=== PATIENT | male | born 1985 | race Caucasian/White ===

== ENCOUNTER 2020-06-09 11:21 | Emergency (ER) | payer SELFPAY ==
--- NOTE | 2020-06-09 11:30 | ED.SEIZURE ---
HPI - Seizure General Chief Complaint: Seizure Stated Complaint: seizure Time Seen by Provider: 06/09/20 11:29 Source: patient, EMS and other (significant other) Mode of arrival: EMS Limitations: no limitations History of Present Illness complaint: seizure Onset (ago): minute(s) Description of Episode: loss of consciousness, post-event confusion and other (repeated episodes of staring off and drooling) -: minutes(s) Witnessed: Yes - by Bystander Trauma: No Seizure History: Yes Place: Outdoors (in car at gas station) Possible Precipitating Event: other (has hx of brain surgery in past was told he would have seizures for his lifetime - states that he hasn't been on medications in a long time used to take trileptal) Associated symptoms: denies other symptoms Treatments prior to arrival: none Related Data Previous Rx's Medication Instructions Recorded oxcarbazepine [Trileptal] 150 mg PO BID #60 tab 06/09/20 Allergies Allergy/AdvReac Type Severity Reaction Status Date / Time No Known Allergies Allergy Verified 06/09/20 11:37 Review of Systems Review of Systems: Constitutional : No Fever, No Chills ENT/Mouth : No Ear Pain, No Hoarseness, No sore throat Eyes: No Eye Pain, No Swelling, No Redness, No Foreign Body Cardiovascular : No Chest Pain, No SOB Respiratory : No Cough, No Dyspnea Gastrointestinal : No Nausea, No Vomiting, No Diarrhea, No abdominal Pain Genitourinary : No Dysuria, No Hematuria Musculoskeletal : no joint pain, No Myalgias, No Joint Swelling Skin : No Skin lacerations, No rash Neuro : No Weakness, No Numbness, pos Loss of Consciousness, No Dizziness, No Headache, pos seizure Psych : No Anxiety/Panic, No Depression Heme/Lymph: no easy bruising, no Lymphadenopathy Endocrine : No Polyuria, No Polydipsia All other systems reviewed and are negative PMFSH Past Medical History Attestation statement: The following information was validated with the patient. Medical History (Updated 06/09/20 @ 12:30 by Freida Rose DO) Seizures Surgical History H/O brain surgery Social History Social History (Updated 06/09/20 @ 11:31 by Freida Milton, DO) Alcohol intake: never Smoking Status: Current every day smoker Use of substances other than those prescribed or required for medical reasons: No Advance Directives: No Advance Directives Information Provided: No Physical Exam Vital Signs: Vital Signs: Last Vital Signs Temp 98.5 F 06/09/20 11:33 Pulse 73 06/09/20 11:33 Resp 18 06/09/20 11:33 BP 125/80 06/09/20 11:33 Pulse Ox 97 06/09/20 11:33 Body Mass Index 22.1 Appearance: Alert. Oriented X3. No acute distress. Eyes: Pupils equal, round and reactive to light. ENT: Pharynx normal. Neck: Normal inspection. Neck supple. CVS: Normal heart rate and rhythm. Pulses normal. Respiratory: No respiratory distress. Breath sounds normal. Abdomen: Soft and nontender. Skin: Skin warm and dry. Normal skin color. Normal skin turgor. Extremities: No lower extremity edema. No calf ttp Neuro: Oriented X 3. No motor deficit. No sensory deficit. Course Course Course Narrative: GCS 15 at baseline, wants to go home, [facility], tolerated trileptal well for years was told he would never come off of it but took him off at this time, will start back on 300mg / day, refer as outpatient MDM - Seizure MDM Narrative Medical decision making narrative: 35 yo male with hx of brain surgery at 16 seizures post this but has not taken any in many years - has had them on and off since then, notes today in a car his GF saw him with staring off, drooling, not responding, no tonic clonic movements ?absence seizures at this time will need basic labs, EKG, he is neuro intact and GCS 15 - will offer [facility] follow up with Neurology Lab Data Result diagrams: 06/09/20 11:44 06/09/20 11:44 Labs: Lab Results 06/09/20 06/09/20 06/09/20 Range/Units 11:44 11:44 11:44 WBC 8.8 (4.8-10.8) X10*3/uL RBC 5.03 (4.60-5.80) X10*6/uL Hgb 14.9 (14.0-18.0) g/dl Hct 44.3 (42-52) % MCV 88.1 (80-98) fL MCH 29.6 (27.0-33.0) pg MCHC 33.6 (31.0-36.0) g/dl RDW 12.9 (11.0-16.0) % Plt Count 236 (160-400) X10*3/uL MPV 9.9 (9.4-12.4) fL Immature Gran % (Auto) 0.3 (0.0-0.4) % Neut % (Auto) 83.5 H (45-73) % Lymph % (Auto) 11.3 L (20-40) % [place] % (Auto) 3.3 (2-11) % Eos % (Auto) 1.3 (0-4) % Baso % (Auto) 0.3 (0-2) % Lymph # (Auto) 1.0 L (1.2-4.9) X10*3/uL [place] # (Auto) 0.3 (0.1-1.2) X10*3/uL Eos # (Auto) 0.1 (0.0-0.4) X10*3/uL Baso # (Auto) 0.0 (0.0-0.2) X10*3/uL Abs Immat Gran (auto) 0.03 (0.00-0.03) X10*3/uL Absolute Neuts (auto) 7.4 (2.0-8.3) X10*3/uL Absolute Nucleated RBC 0.000 (0.0-0.012) X10*3/uL Nucleated RBC % (auto) 0.0 (0.0-0.2) /100WBC Hold Blue Top SEE NOTE Sodium 139 (135-145) mmol/L Potassium 4.8 (3.3-5.1) mmol/L Chloride 105 (96-108) mmol/L Carbon Dioxide 19 L (22-29) mmol/L Anion Gap 20 (12-20) BUN 15 (9-16) mg/dL Creatinine 1.22 (0.5-1.4) mg/dL Estim Creat Clear Calc 80.5 Estimated GFR > 60 Random Glucose 139 H (60-115) mg/dL Calcium 9.5 (8.4-10.2) mg/dL Magnesium (1.6-2.6) mg/dL Total Bilirubin (0.0-1.0) mg/dL Direct Bilirubin (0.0-0.5) mg/dL AST (5-37) U/L ALT (0-40) U/L Alkaline Phosphatase (39-117) U/L Total Protein (6.5-8.0) g/dL Albumin (3.5-5.0) g/dL 06/09/20 Range/Units 11:44 WBC (4.8-10.8) X10*3/uL RBC (4.60-5.80) X10*6/uL Hgb (14.0-18.0) g/dl Hct (42-52) % MCV (80-98) fL MCH (27.0-33.0) pg MCHC (31.0-36.0) g/dl RDW (11.0-16.0) % Plt Count (160-400) X10*3/uL MPV (9.4-12.4) fL Immature Gran % (Auto) (0.0-0.4) % Neut % (Auto) (45-73) % Lymph % (Auto) (20-40) % [place] % (Auto) (2-11) % Eos % (Auto) (0-4) % Baso % (Auto) (0-2) % Lymph # (Auto) (1.2-4.9) X10*3/uL [place] # (Auto) (0.1-1.2) X10*3/uL Eos # (Auto) (0.0-0.4) X10*3/uL Baso # (Auto) (0.0-0.2) X10*3/uL Abs Immat Gran (auto) (0.00-0.03) X10*3/uL Absolute Neuts (auto) (2.0-8.3) X10*3/uL Absolute Nucleated RBC (0.0-0.012) X10*3/uL Nucleated RBC % (auto) (0.0-0.2) /100WBC Hold Blue Top Sodium (135-145) mmol/L Potassium (3.3-5.1) mmol/L Chloride (96-108) mmol/L Carbon Dioxide (22-29) mmol/L Anion Gap (12-20) BUN (9-16) mg/dL Creatinine (0.5-1.4) mg/dL Estim Creat Clear Calc Estimated GFR Random Glucose (60-115) mg/dL Calcium (8.4-10.2) mg/dL Magnesium 2.5 (1.6-2.6) mg/dL Total Bilirubin 0.4 (0.0-1.0) mg/dL Direct Bilirubin 0.2 (0.0-0.5) mg/dL AST 16 (5-37) U/L ALT 20 (0-40) U/L Alkaline Phosphatase 73 (39-117) U/L Total Protein 7.0 (6.5-8.0) g/dL Albumin 4.6 (3.5-5.0) g/dL ECG Data Attestation: I personally reviewed and interpreted this ECG as follows: ECG interpretation date: 06/09/20 ECG interpretation time: 11:44 Interpretation: Rate: 70 Rhythm: NSR [place]: normal Normal P waves. Normal DOUG. Normal QRS complex. ST T wave : normal, no ROMEO qTC: normal prior studies: no acute ischemia The study has been interpreted contemporaneously by me. . Discharge Plan Discharge Clinical Impression: Focal seizure Patient Disposition: Home, Self-Care Instructions: Epilepsy (ED) Additional Instructions: return to ED for any worsening symptoms or concerns do not operate cars or heavy machinery until cleared by your doctor Prescriptions: New oxcarbazepine [Trileptal] 150 mg tablet 150 mg PO BID Qty: 60 RF: 1 Stand Alone Forms: Work/School Release
[2020-06-09 11:33] VITALS: BP 125/80; BP 138/90; PULSE 73; PULSE 96; RESP 18; TEMP 36.9; O2SAT 97; BMI 22.1
--- NOTE | 2020-06-09 11:33 | ECG_ITS ---
Test Reason : SEIZURE Blood Pressure : / mmHG Vent. Rate : 070 BPM Atrial Rate : 070 BPM P-R Int : 120 ms QRS Dur : 092 ms QT Int : 380 ms P-R-T Axes : 020 022 023 degrees QTc Int : 410 ms Normal sinus rhythm Normal ECG No previous ECGs available Referred By: Freida Rose Electronically Signed By:MELANIE TINEO MD
[2020-06-09 11:50] LABS: MANUAL DIFF FLAG NO
[2020-06-09 11:53] LABS: Basophils Percent Auto 0.3 % (0-2); Eosinophils Absolute Auto 0.1 X10*3/uL (0.0-0.4); Eosinophils Percent Auto 1.3 % (0-4); Hematocrit 44.3 % (42-52); Hemoglobin 14.9 g/dl (14.0-18.0); Imm Gran Abs Auto 0.03 X10*3/uL (0.00-0.03); Imm Gran Pct Auto 0.3 % (0.0-0.4); Lymphocytes Percent Auto 11.3 % (20-40); Mean Corpuscular HGB Conc 33.6 g/dl (31.0-36.0); Mean Corpuscular Hemoglobin 29.6 pg (27.0-33.0); Mean Corpuscular Volume 88.1 fL (80-98); Mean Platelet Volume 9.9 fL (9.4-12.4); Monocytes Absolute Auto 0.3 X10*3/uL (0.1-1.2); Monocytes Percent Auto 3.3 % (2-11); Neutrophils Absolute Auto 7.4 X10*3/uL (2.0-8.3); Neutrophils Percent Auto 83.5 % (45-73); Platelet Count 236 X10*3/uL (160-400); Red Blood Count 5.03 X10*6/uL (4.60-5.80); Red Cell Distribution Width 12.9 % (11.0-16.0); White Blood Count 8.8 X10*3/uL (4.8-10.8)
[2020-06-09 12:17] LABS: Anion Gap 20 (12-20); Blood Urea Nitrogen 15 mg/dL (9-16); Calcium 9.5 mg/dL (8.4-10.2); Carbon Dioxide 19 mmol/L (22-29); Chloride 105 mmol/L (96-108); Creatinine Clr Calc Pharmacy 80.5; Estimated Glomerular Filt Rate > 60; Glucose Random 139 mg/dL (60-115); Potassium 4.8 mmol/L (3.3-5.1); Sodium 139 mmol/L (135-145)
[2020-06-09 12:21] LABS: Alanine Aminotransferase 20 U/L (0-40); Albumin Level 4.6 g/dL (3.5-5.0); Alkaline Phosphatase 73 U/L (39-117); Aspartate Amino Transferase 16 U/L (5-37); Bilirubin Direct 0.2 mg/dL (0.0-0.5); Bilirubin Total 0.4 mg/dL (0.0-1.0); Magnesium 2.5 mg/dL (1.6-2.6)
--- NOTE | 2020-06-09 12:28 | PC.NURSE ---
NO SEIZURES SINCE ARRRIVAL TO ED, SEIZURE PRECAUTIONS IN PLACE, NSR ON MONITOR. AMBULATED INDEPENDENTLY TO BATHROOM WITH NO ISSUE. GIVEN PAMPHLET FOR FINANCIAL ASSISTANCE.
== END 2020-06-09 12:33 | disposition home or self-care (01) ==
PROVIDERS: Emergency Provider Emergency Medicine
DX: G40.109 Localization-related (focal) (partial) symptomatic epilepsy and epileptic syndromes with simple partial seizures, not intractable, without status epilepticus (principal); F17.200 Nicotine dependence, unspecified, uncomplicated
CPT/HCPCS: 36415; 80048; 80076; 83735; 85025; 93005; 99283

== ENCOUNTER 2020-08-29 10:49 | Emergency (ER) | payer SELFPAY ==
[2020-08-29 10:56] VITALS: BP 120/71; PULSE 88; RESP 16; TEMP 36.9; O2SAT 94; BMI 21.5
--- NOTE | 2020-08-29 11:02 | ED_ITS ---
HPI - Seizure General Chief Complaint: Seizure Stated Complaint: seizure Time Seen by Provider: 08/29/20 10:54 Source: patient and EMS Mode of arrival: EMS Limitations: no limitations History of Present Illness HPI Narrative: Patient comes emergency room after having a seizure. Patient had a witnessed seizure according to EMS, patient's girlfriend fall down. Seizure lasted approximately 1 minute. 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 Patient states that he had a seizure a few months ago, he was started on Trileptal 150 mg b.i.d., he was doing well but recently he ran out of his medications. It has been over 2 weeks that he has not had any medication for seizures. Patient states that he does not have insurance and is not able to get a primary care physician or go see a neurologist. Patient states that he does not remember wha t happened. However, patient states that he needs to be at work by 15:00, and if necessary he will sign out against medical advice that he can make it on time to work MD complaint: seizure Seizure History: Yes Related Data Previous Rx's Medication Instructions Recorded oxcarbazepine [Trileptal] 150 mg PO BID #60 tab 06/09/20 oxcarbazepine [Trileptal] 150 mg PO BID #90 tab 08/29/20 Allergies Allergy/AdvReac Type Severity Reaction Status Date / Time No Known Allergies Allergy Verified 06/09/20 11:37 Review of Systems Review of Systems: Constitutional : No Weight loss, No Fever, No Chills, No Night Sweats, No Fatigue, No Malaise ENT/Mouth : No Hearing loss, No Ear Pain, No Nasal Congestion, No Sinus Pain, No Hoarseness, No sore throat, No Rhinorrhea, No Swallowing Difficulty Eyes: No Eye Pain, No Swelling, No Redness, No Foreign Body, No Discharge, No Vision Changes Cardiovascular : No Chest Pain, No SOB, No Dyspnea on Exertion, No Orthopnea, No Edema, No Palpitations Respiratory : No Cough, No Sputum, No Wheezing, No Smoke Exposure, No Dyspnea Gastrointestinal : No Nausea, No Vomiting, No Diarrhea, No Constipation, No abdominal Pain, No Hematochezia, No Melena Genitourinary : no irregular bleeding, No Dysuria, No Urinary Frequency, No Hematuria, No Urinary Incontinence, No Urgency, No Flank Pain, No Urinary Flow Changes, No Hesitancy Musculoskeletal : No joint pain, No Myalgias, No Joint Swelling Skin : No Skin Lesions, No rash Neuro : No Weakness, No Numbness, No Paresthesias, No Loss of Consciousness, No Dizziness, of frontal headache, complaining of a seizure earlier today through Psych : No Anxiety/Panic, No Depression, No SI/HI/AH/VH, No Social Issues, Heme/Lymph: No Bruising, No Bleeding,No Lymphadenopathy Endocrine : No Polyuria, No Polydipsia, No Temperature Intolerance [facility] Past Medical History Medical History Seizures Surgical History H/O brain surgery Social History Social History (Updated 06/09/20 @ 11:31 by Freida Rose DO) Alcohol intake: never Advance Directives: Yes Advance Directives Information Provided: No Advance Directives on File: No Physical Exam Vital Signs: Vital Signs: Last Vital Signs Temp 98.5 F 08/29/20 10:56 Pulse 88 08/29/20 10:56 Resp 16 08/29/20 10:56 BP 120/71 08/29/20 10:56 Pulse Ox 94 08/29/20 10:56 Body Mass Index 21.5 Appearance: Alert. Oriented X3. No acute distress. Eyes: Pupils equal, round and reactive to light. ENT: Pharynx normal. Neck: Normal inspection. Neck supple. No lymph nodes noted. No crepitus CVS: Normal heart rate and rhythm. Pulses normal. Normal S1 and S2 Respiratory: No respiratory distress. Breath sounds normal. No Wheezing. No rales Abdomen: Soft and nontender. No rigidity. No distention. good BS x4 Skin: Skin warm and dry. Normal skin color. Normal skin turgor. Extremities: No lower extremity edema. No Lacerations. No Rash Neuro: Oriented X 3. No motor deficit. No sensory deficit. Moving all extermities. No slurred speech. Course Course Course Narrative: I discussed the labs with the patient, states that he would like to be discharged, he needs to get going to work. Patient's seizure was likely due to medication noncompliance. Patient instructed to follow-up with the primary care physician, information for PCP given. Patient still needs to arrange his health insurance, instructions given to the patient. MDM - Seizure Lab Data Result diagrams: 08/29/20 11:15 08/29/20 11:15 Labs: Lab Results 08/29/20 08/29/20 08/29/20 Range/Units 11:15 11:15 11:15 WBC 6.2 (4.8-10.8) X10*3/uL RBC 4.95 (4.60-5.80) X10*6/uL Hgb 14.8 (14.0-18.0) g/dl Hct 43.6 (42-52) % MCV 88.1 (80-98) fL MCH 29.9 (27.0-33.0) pg MCHC 33.9 (31.0-36.0) g/dl RDW 13.1 (11.0-16.0) % Plt Count 219 (160-400) X10*3/uL MPV 10.1 (9.4-12.4) fL Immature Gran % (Auto) 0.5 H (0.0-0.4) % Neut % (Auto) 71.9 (45-73) % Lymph % (Auto) 17.4 L (20-40) % [place] % (Auto) 5.3 (2-11) % Eos % (Auto) 4.4 H (0-4) % Baso % (Auto) 0.5 (0-2) % Lymph # (Auto) 1.1 L (1.2-4.9) X10*3/uL [place] # (Auto) 0.3 (0.1-1.2) X10*3/uL Eos # (Auto) 0.3 (0.0-0.4) X10*3/uL Baso # (Auto) 0.0 (0.0-0.2) X10*3/uL Abs Immat Gran (auto) 0.03 (0.00-0.03) X10*3/uL Absolute Neuts (auto) 4.5 (2.0-8.3) X10*3/uL Absolute Nucleated RBC 0.000 (0.0-0.012) X10*3/uL Nucleated RBC % (auto) 0.0 (0.0-0.2) /100WBC Sodium 139 (135-145) mmol/L Potassium 4.8 (3.3-5.1) mmol/L Chloride 107 (96-108) mmol/L Carbon Dioxide 20 L (22-29) mmol/L Anion Gap 17 (12-20) BUN 12 (9-16) mg/dL Creatinine 1.14 (0.5-1.4) mg/dL Estim Creat Clear Calc 86.2 Estimated GFR > 60 Random Glucose 139 H (60-115) mg/dL Calcium 9.3 (8.4-10.2) mg/dL Total Bilirubin 0.4 (0.0-1.0) mg/dL Direct Bilirubin < 0.2 (0.0-0.5) mg/dL AST 13 (5-37) U/L ALT 11 (0-40) U/L Alkaline Phosphatase 56 D (39-117) U/L Total Protein 6.7 (6.5-8.0) g/dL Albumin 4.3 (3.5-5.0) g/dL Urine Color STRAW Urine Appearance CLEAR Urine pH 6.0 (5.0-8.0) Ur Specific [place] 1.020 (1.005-1.025) Urine Protein NEG (NEG-TRACE) MG/DL Urine Glucose (UA) NEG (NEG) MG/DL Urine Ketones NEG (NEG) MG/DL Urine Blood TRACE (NEG) Urine Nitrite NEG (NEG) Ur Leukocyte Esterase NEG (NEG) Urine RBC 0-2 (0) /HPF Urine WBC 0 (0-4) /HPF Ur Squamous Epith Cells NONE /LPF Urine Bacteria NONE /LPF Urine Opiates Screen (Not Detect) Ur Barbiturates Screen (Not Detect) Ur Phencyclidine Scrn (Not Detect) Ur Amphetamines Screen (Not Detect) U Benzodiazepines Scrn (Not Detect) Urine Cocaine Screen (Not Detect) U Marijuana (THC) Screen (Not Detect) 08/29/20 Range/Units 11:15 WBC (4.8-10.8) X10*3/uL RBC (4.60-5.80) X10*6/uL Hgb (14.0-18.0) g/dl Hct (42-52) % MCV (80-98) fL MCH (27.0-33.0) pg MCHC (31.0-36.0) g/dl RDW (11.0-16.0) % Plt Count (160-400) X10*3/uL MPV (9.4-12.4) fL Immature Gran % (Auto) (0.0-0.4) % Neut % (Auto) (45-73) % Lymph % (Auto) (20-40) % [place] % (Auto) (2-11) % Eos % (Auto) (0-4) % Baso % (Auto) (0-2) % Lymph # (Auto) (1.2-4.9) X10*3/uL [place] # (Auto) (0.1-1.2) X10*3/uL Eos # (Auto) (0.0-0.4) X10*3/uL Baso # (Auto) (0.0-0.2) X10*3/uL Abs Immat Gran (auto) (0.00-0.03) X10*3/uL Absolute Neuts (auto) (2.0-8.3) X10*3/uL Absolute Nucleated RBC (0.0-0.012) X10*3/uL Nucleated RBC % (auto) (0.0-0.2) /100WBC Sodium (135-145) mmol/L Potassium (3.3-5.1) mmol/L Chloride (96-108) mmol/L Carbon Dioxide (22-29) mmol/L Anion Gap (12-20) BUN (9-16) mg/dL Creatinine (0.5-1.4) mg/dL Estim Creat Clear Calc Estimated GFR Random Glucose (60-115) mg/dL Calcium (8.4-10.2) mg/dL Total Bilirubin (0.0-1.0) mg/dL Direct Bilirubin (0.0-0.5) mg/dL AST (5-37) U/L ALT (0-40) U/L Alkaline Phosphatase (39-117) U/L Total Protein (6.5-8.0) g/dL Albumin (3.5-5.0) g/dL Urine Color Urine Appearance Urine pH (5.0-8.0) Ur Specific [place] (1.005-1.025) Urine Protein (NEG-TRACE) MG/DL Urine Glucose (UA) (NEG) MG/DL Urine Ketones (NEG) MG/DL Urine Blood (NEG) Urine Nitrite (NEG) Ur Leukocyte Esterase (NEG) Urine RBC (0) /HPF Urine WBC (0-4) /HPF Ur Squamous Epith Cells /LPF Urine Bacteria /LPF Urine Opiates Screen Not Detected (Not Detect) Ur Barbiturates Screen Not Detected (Not Detect) Ur Phencyclidine Scrn Not Detected (Not Detect) Ur Amphetamines Screen Not Detected (Not Detect) U Benzodiazepines Scrn Not Detected (Not Detect) Urine Cocaine Screen Not Detected (Not Detect) U Marijuana (THC) Screen POSITIVE H (Not Detect) Discharge Plan Discharge Clinical Impression: Generalized seizure Patient Disposition: Home, Self-Care Instructions: Generalized Tonic Clonic Seizures (ED) Additional Instructions: Please go to the [facility] financial office on the 1st floor. There, you can get help to apply for [employer]. Please follow-up with your primary care physician tomorrow. If you have any worsening or new symptoms, please return to the emergency room or call 911 Prescriptions: New oxcarbazepine [Trileptal] 150 mg tablet 150 mg PO BID Qty: 90 RF: 1 No Action oxcarbazepine [Trileptal] 150 mg tablet 150 mg PO BID Qty: 60 RF: 1
[2020-08-29] MEDS: Acetaminophen 325 MG TABLET 650 MG PO (11:16)
[2020-08-29] MEDS: OXcarbazepine 150 MG TABLET PO (11:16)
[2020-08-29 11:23] LABS: MANUAL DIFF FLAG NO
[2020-08-29 11:24] LABS: Basophils Percent Auto 0.5 % (0-2); Eosinophils Absolute Auto 0.3 X10*3/uL (0.0-0.4); Eosinophils Percent Auto 4.4 % (0-4); Hematocrit 43.6 % (42-52); Hemoglobin 14.8 g/dl (14.0-18.0); Imm Gran Abs Auto 0.03 X10*3/uL (0.00-0.03); Imm Gran Pct Auto 0.5 % (0.0-0.4); Lymphocytes Absolute Auto 1.1 X10*3/uL (1.2-4.9); Lymphocytes Percent Auto 17.4 % (20-40); Mean Corpuscular HGB Conc 33.9 g/dl (31.0-36.0); Mean Corpuscular Hemoglobin 29.9 pg (27.0-33.0); Mean Corpuscular Volume 88.1 fL (80-98); Mean Platelet Volume 10.1 fL (9.4-12.4); Monocytes Absolute Auto 0.3 X10*3/uL (0.1-1.2); Monocytes Percent Auto 5.3 % (2-11); Neutrophils Absolute Auto 4.5 X10*3/uL (2.0-8.3); Neutrophils Percent Auto 71.9 % (45-73); Platelet Count 219 X10*3/uL (160-400); Red Blood Count 4.95 X10*6/uL (4.60-5.80); Red Cell Distribution Width 13.1 % (11.0-16.0); White Blood Count 6.2 X10*3/uL (4.8-10.8)
[2020-08-29 11:26] LABS: Glucose Urine UA NEG (NEG); Leukocyte Esterase Urine NEG (NEG); Nitrite Urine NEG (NEG); Urine Blood TRACE (NEG); Urine Ketones NEG (NEG); Urine Protein NEG (NEG-TRACE)
[2020-08-29 11:27] LABS: Appearance Urine CLEAR; Color Urine STRAW
[2020-08-29 11:41] LABS: RBC Urine 0-2 /HPF (0); WBC Urine 0 /HPF (0-4)
[2020-08-29 11:52] LABS: Alanine Aminotransferase 11 U/L (0-40); Albumin Level 4.3 g/dL (3.5-5.0); Alkaline Phosphatase 56 U/L (39-117); Amphetamine Screen Urine Not Detected (Not Detect); Anion Gap 17 (12-20); Aspartate Amino Transferase 13 U/L (5-37); Barbiturates, Urine Not Detected (Not Detect); Benzodiazepines Screen Urine Not Detected (Not Detect); Bilirubin Direct < 0.2 mg/dL (0.0-0.5); Bilirubin Total 0.4 mg/dL (0.0-1.0); Blood Urea Nitrogen 12 mg/dL (9-16); Calcium 9.3 mg/dL (8.4-10.2); Cannabinoid Screen Urine POSITIVE (Not Detect); Carbon Dioxide 20 mmol/L (22-29); Chloride 107 mmol/L (96-108); Cocaine Screen Urine Not Detected (Not Detect); Creatinine Clr Calc Pharmacy 86.2; Estimated Glomerular Filt Rate > 60; Glucose Random 139 mg/dL (60-115); Opiate Screen Urine Not Detected (Not Detect); Phencyclidine Screen Urine Not Detected (Not Detect); Potassium 4.8 mmol/L (3.3-5.1); Sodium 139 mmol/L (135-145); Total Protein 6.7 g/dL (6.5-8.0)
== END 2020-08-29 12:20 | disposition home or self-care (01) ==
PROVIDERS: Emergency Provider Emergency Medicine
DX: G40.89 Other seizures (principal); Z91.14 Patient's other noncompliance with medication regimen
CPT/HCPCS: 36415; 80048; 80076; 80307; 81001; 85025; 99283; 99284

== ENCOUNTER 2020-12-04 20:50 | Emergency (ER) | payer OTHER, SELFPAY ==
[2020-12-04 20:55] VITALS: BP 138/70; PULSE 90; O2SAT 100
[2020-12-04 21:02] VITALS: BMI 22.8
--- NOTE | 2020-12-04 21:10 | ECG_ITS ---
Test Reason : SEIZURE Blood Pressure : / mmHG Vent. Rate : 078 BPM Atrial Rate : 078 BPM P-R Int : 144 ms QRS Dur : 092 ms QT Int : 390 ms P-R-T Axes : 047 -01 010 degrees QTc Int : 444 ms Normal sinus rhythm with sinus arrhythmia Normal ECG No significant changes seen Referred By: Ernestina Boateng Electronically Signed By:LUDY GOMEZ MD
--- NOTE | 2020-12-04 21:13 | ED.SEIZURE ---
HPI - Seizure General Chief Complaint: Seizure Stated Complaint: seizure Time Seen by Provider: 12/04/20 21:05 Source: patient and EMS Mode of arrival: EMS Limitations: no limitations History of Present Illness HPI Narrative: Patient comes emergency room complaining of a seizure which was witnessed by his girlfriend. According to EMS, the patient's girlfriend reported that the seizure lasted for 5 minutes. Patient arrived to the emergency room alert and oriented x3, not postictal. 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 Patient was seen here in August 2020. Patient is supposed to be taking Trileptal, he was given information to follow up with a new primary care physician and was given the phone number for Neurology. Patient did not call Neurology or scheduled an appointment with a new PCP. Patient states that he is upset because he was given a prescription for Trileptal, and when he ran out of medications he called the emergency room for a refill and was declined. It was explained to the patient that primary care physician or a neurologist needs to take care of his refills, and also needs a neurologist to manage his condition. Patient denies any symptoms at this time, did not bite his tongue, no incontinence Seizure History: Yes Related Data Previous Rx's Medication Instructions Recorded oxcarbazepine 150 mg tablet 150 mg PO BID #60 tab 06/09/20 (Trileptal) oxcarbazepine 150 mg tablet 150 mg PO BID #90 tab 08/29/20 (Trileptal) oxcarbazepine 150 mg tablet 150 mg PO BID #120 tab 12/04/20 (Trileptal) Allergies Allergy/AdvReac Type Severity Reaction Status Date / Time No Known Allergies Allergy Verified 06/09/20 11:37 Review of Systems Review of Systems: Constitutional : No Weight loss, No Fever, No Chills, No Night Sweats, No Fatigue, No Malaise ENT/Mouth : No Hearing loss, No Ear Pain, No Nasal Congestion, No Sinus Pain, No Hoarseness, No sore throat, No Rhinorrhea, No Swallowing Difficulty Eyes: No Eye Pain, No Swelling, No Redness, No Foreign Body, No Discharge, No Vision Changes Cardiovascular : No Chest Pain, No SOB, No Dyspnea on Exertion, No Orthopnea, No Edema, No Palpitations Respiratory : No Cough, No Sputum, No Wheezing, No Smoke Exposure, No Dyspnea Gastrointestinal : No Nausea, No Vomiting, No Diarrhea, No Constipation, No abdominal Pain, No Hematochezia, No Melena Genitourinary : no irregular bleeding, No Dysuria, No Urinary Frequency, No Hematuria, No Urinary Incontinence, No Urgency, No Flank Pain, No Urinary Flow Changes, No Hesitancy Musculoskeletal : No joint pain, No Myalgias, No Joint Swelling Skin : No Skin Lesions, No rash Neuro : No Weakness, No Numbness, No Paresthesias, patient had 1 seizure Psych : No Anxiety/Panic, No Depression, No SI/HI/AH/VH, No Social Issues, Heme/Lymph: No Bruising, No Bleeding,No Lymphadenopathy Endocrine : No Polyuria, No Polydipsia, No Temperature Intolerance PMFSH Past Medical History Medical History Seizures Surgical History H/O brain surgery Social History Social History (Updated 06/09/20 @ 11:31 by Freida Rose DO) Alcohol intake: never Advance Directives: No Advance Directives Information Provided: Yes Physical Exam Vital Signs: Vital Signs: Last Vital Signs Temp 96 F L 12/04/20 22:05 Pulse 79 12/04/20 22:05 Resp 18 12/04/20 22:05 BP 120/83 12/04/20 22:05 Pulse Ox 98 12/04/20 22:05 Body Mass Index 22.8 Const: Other: Appearance: Alert. Oriented X3, not postictal. No acute distress. Eyes: Pupils equal, round and reactive to light. ENT: Pharynx normal. Neck: Normal inspection. Neck supple. No lymph nodes noted. No crepitus CVS: Normal heart rate and rhythm. Pulses normal. Normal S1 and S2 Respiratory: No respiratory distress. Breath sounds normal. No Wheezing. No rales Abdomen: Soft and nontender. No rigidity. No distention. good BS x4 Skin: Skin warm and dry. Normal skin color. Normal skin turgor. Extremities: No lower extremity edema. No Lacerations. No Rash Neuro: Oriented X 3. No motor deficit. No sensory deficit. Moving all extermities. No slurred speech. Course Course Course Narrative: Patient is today upset today because does not have good signal on his cellphone, wants to leave AMA. A hospital phone was provided. I discussed the labs and imaging with the patient, patient states that he recently took Adderall to get him motivated to work. Patient denies using drugs or marijuana. Patient instructed to follow-up with his new primary care physician. On discharge, patient is awake, alert and oriented x3, no acute distress, neurologically intact, steady gait, patient apologized for his behavior earlier today. MDM - Seizure Lab Data Result diagrams: 12/04/20 21:36 12/04/20 21:36 Labs: Lab Results 12/04/20 12/04/20 12/04/20 Range/Units 21:36 21:36 21:36 WBC 7.6 (4.8-10.8) X10*3/uL RBC 4.60 (4.60-5.80) X10*6/uL Hgb 13.8 L (14.0-18.0) g/dl Hct 39.8 L (42-52) % MCV 86.5 (80-98) fL MCH 30.0 (27.0-33.0) pg MCHC 34.7 (31.0-36.0) g/dl RDW 12.8 (11.0-16.0) % Plt Count 218 (160-400) X10*3/uL MPV 10.1 (9.4-12.4) fL Immature Gran % (Auto) 0.4 (0.0-0.4) % Neut % (Auto) 73.3 H (45-73) % Lymph % (Auto) 16.4 L (20-40) % [place] % (Auto) 5.9 (2-11) % Eos % (Auto) 3.7 (0-4) % Baso % (Auto) 0.3 (0-2) % Lymph # (Auto) 1.3 (1.2-4.9) X10*3/uL [place] # (Auto) 0.5 (0.1-1.2) X10*3/uL Eos # (Auto) 0.3 (0.0-0.4) X10*3/uL Baso # (Auto) 0.0 (0.0-0.2) X10*3/uL Abs Immat Gran (auto) 0.03 (0.00-0.03) X10*3/uL Absolute Neuts (auto) 5.6 (2.0-8.3) X10*3/uL Absolute Nucleated RBC 0.000 (0.0-0.012) X10*3/uL Nucleated RBC % (auto) 0.0 (0.0-0.2) /100WBC Sodium 140 (135-145) mmol/L Potassium 4.0 (3.3-5.1) mmol/L Chloride 106 (96-108) mmol/L Carbon Dioxide 22 (22-29) mmol/L Anion Gap 16 (12-20) BUN 15 (9-16) mg/dL Creatinine 1.11 (0.5-1.4) mg/dL Estim Creat Clear Calc 91.4 Estimated GFR > 60 Random Glucose 114 (60-115) mg/dL Calcium 9.3 (8.4-10.2) mg/dL Total Bilirubin 0.5 (0.0-1.0) mg/dL Direct Bilirubin 0.2 (0.0-0.5) mg/dL AST 18 (5-37) U/L ALT 15 (0-40) U/L Alkaline Phosphatase 53 (39-117) U/L Total Protein 6.7 (6.5-8.0) g/dL Albumin 4.5 (3.5-5.0) g/dL Urine Color Urine Appearance Urine pH (5.0-8.0) Ur Specific [place] (1.005-1.025) Urine Protein (NEG-TRACE) MG/DL Urine Glucose (UA) (NEG) MG/DL Urine Ketones (NEG) MG/DL Urine Blood (NEG) Urine Nitrite (NEG) Ur Leukocyte Esterase (NEG) Urine RBC (0) /HPF Urine WBC (0-4) /HPF Ur Squamous Epith Cells /LPF Urine Bacteria /LPF Urine Opiates Screen (Not Detect) Urine Fentanyl Screen (Not Detect) Ur Barbiturates Screen (Not Detect) Ur Phencyclidine Scrn (Not Detect) Ur Amphetamines Screen (Not Detect) U Benzodiazepines Scrn (Not Detect) Urine Cocaine Screen (Not Detect) U Marijuana (THC) Screen (Not Detect) Ethyl Alcohol < 10 mg/dL 12/04/20 12/04/20 Range/Units 21:36 21:36 WBC (4.8-10.8) X10*3/uL RBC (4.60-5.80) X10*6/uL Hgb (14.0-18.0) g/dl Hct (42-52) % MCV (80-98) fL MCH (27.0-33.0) pg MCHC (31.0-36.0) g/dl RDW (11.0-16.0) % Plt Count (160-400) X10*3/uL MPV (9.4-12.4) fL Immature Gran % (Auto) (0.0-0.4) % Neut % (Auto) (45-73) % Lymph % (Auto) (20-40) % [place] % (Auto) (2-11) % Eos % (Auto) (0-4) % Baso % (Auto) (0-2) % Lymph # (Auto) (1.2-4.9) X10*3/uL [place] # (Auto) (0.1-1.2) X10*3/uL Eos # (Auto) (0.0-0.4) X10*3/uL Baso # (Auto) (0.0-0.2) X10*3/uL Abs Immat Gran (auto) (0.00-0.03) X10*3/uL Absolute Neuts (auto) (2.0-8.3) X10*3/uL Absolute Nucleated RBC (0.0-0.012) X10*3/uL Nucleated RBC % (auto) (0.0-0.2) /100WBC Sodium (135-145) mmol/L Potassium (3.3-5.1) mmol/L Chloride (96-108) mmol/L Carbon Dioxide (22-29) mmol/L Anion Gap (12-20) BUN (9-16) mg/dL Creatinine (0.5-1.4) mg/dL Estim Creat Clear Calc Estimated GFR Random Glucose (60-115) mg/dL Calcium (8.4-10.2) mg/dL Total Bilirubin (0.0-1.0) mg/dL Direct Bilirubin (0.0-0.5) mg/dL AST (5-37) U/L ALT (0-40) U/L Alkaline Phosphatase (39-117) U/L Total Protein (6.5-8.0) g/dL Albumin (3.5-5.0) g/dL Urine Color YELLOW Urine Appearance CLEAR Urine pH 5.5 (5.0-8.0) Ur Specific [place] >= 1.030 H (1.005-1.025) Urine Protein 1+ H (NEG-TRACE) MG/DL Urine Glucose (UA) NEG (NEG) MG/DL Urine Ketones NEG (NEG) MG/DL Urine Blood TRACE (NEG) Urine Nitrite NEG (NEG) Ur Leukocyte Esterase NEG (NEG) Urine RBC 0 (0) /HPF Urine WBC 0 (0-4) /HPF Ur Squamous Epith Cells NONE /LPF Urine Bacteria TRACE /LPF Urine Opiates Screen Not Detected (Not Detect) Urine Fentanyl Screen Not Detected (Not Detect) Ur Barbiturates Screen Not Detected (Not Detect) Ur Phencyclidine Scrn Not Detected (Not Detect) Ur Amphetamines Screen POSITIVE H (Not Detect) U Benzodiazepines Scrn Not Detected (Not Detect) Urine Cocaine Screen Not Detected (Not Detect) U Marijuana (THC) Screen POSITIVE H (Not Detect) Ethyl Alcohol mg/dL Discharge Plan Discharge Clinical Impression: Generalized seizure Patient Disposition: Home, Self-Care Instructions: Generalized Tonic Clonic Seizures (ED) Additional Instructions: Please follow-up with your primary care physician tomorrow. If you have any worsening or new symptoms, please return to the emergency room or call 911 Prescriptions: New oxcarbazepine [Trileptal] 150 mg tablet 150 mg PO BID Qty: 120 RF: 0 No Action oxcarbazepine [Trileptal] 150 mg tablet 150 mg PO BID Qty: 60 RF: 1 oxcarbazepine [Trileptal] 150 mg tablet 150 mg PO BID Qty: 90 RF: 1
[2020-12-04] MEDS: OXcarbazepine 300 MG TABLET PO (21:39)
[2020-12-04 21:41] LABS: MANUAL DIFF FLAG NO
[2020-12-04 21:42] LABS: Basophils Percent Auto 0.3 % (0-2); Eosinophils Absolute Auto 0.3 X10*3/uL (0.0-0.4); Eosinophils Percent Auto 3.7 % (0-4); Hematocrit 39.8 % (42-52); Hemoglobin 13.8 g/dl (14.0-18.0); Imm Gran Abs Auto 0.03 X10*3/uL (0.00-0.03); Imm Gran Pct Auto 0.4 % (0.0-0.4); Lymphocytes Absolute Auto 1.3 X10*3/uL (1.2-4.9); Lymphocytes Percent Auto 16.4 % (20-40); Mean Corpuscular HGB Conc 34.7 g/dl (31.0-36.0); Mean Corpuscular Volume 86.5 fL (80-98); Mean Platelet Volume 10.1 fL (9.4-12.4); Monocytes Absolute Auto 0.5 X10*3/uL (0.1-1.2); Monocytes Percent Auto 5.9 % (2-11); Neutrophils Absolute Auto 5.6 X10*3/uL (2.0-8.3); Neutrophils Percent Auto 73.3 % (45-73); Platelet Count 218 X10*3/uL (160-400); Red Cell Distribution Width 12.8 % (11.0-16.0); White Blood Count 7.6 X10*3/uL (4.8-10.8)
[2020-12-04 21:43] LABS: Appearance Urine CLEAR; Color Urine YELLOW; Glucose Urine UA NEG (NEG); Leukocyte Esterase Urine NEG (NEG); Nitrite Urine NEG (NEG); PH 5.5 (5.0-8.0); Specific Gravity - Urine >= 1.030 (1.005-1.025); UACC Culture Trigger NO; Urine Blood TRACE (NEG); Urine Ketones NEG (NEG); Urine Protein 1+ MG/DL (NEG-TRACE)
[2020-12-04 21:50] LABS: Bacteria Urine TRACE /LPF; RBC Urine 0 /HPF (0); WBC Urine 0 /HPF (0-4)
[2020-12-04 21:56] LABS: Ethanol < 10 mg/dL
[2020-12-04 21:58] LABS: Amphetamine Screen Urine POSITIVE (Not Detect); Barbiturates, Urine Not Detected (Not Detect); Benzodiazepines Screen Urine Not Detected (Not Detect); Cannabinoid Screen Urine POSITIVE (Not Detect); Cocaine Screen Urine Not Detected (Not Detect); Fentanyl, urine Not Detected (Not Detect); Opiate Screen Urine Not Detected (Not Detect); Phencyclidine Screen Urine Not Detected (Not Detect)
[2020-12-04 21:59] LABS: Alanine Aminotransferase 15 U/L (0-40); Albumin Level 4.5 g/dL (3.5-5.0); Alkaline Phosphatase 53 U/L (39-117); Anion Gap 16 (12-20); Aspartate Amino Transferase 18 U/L (5-37); Bilirubin Direct 0.2 mg/dL (0.0-0.5); Bilirubin Total 0.5 mg/dL (0.0-1.0); Blood Urea Nitrogen 15 mg/dL (9-16); Calcium 9.3 mg/dL (8.4-10.2); Carbon Dioxide 22 mmol/L (22-29); Chloride 106 mmol/L (96-108); Creatinine Clr Calc Pharmacy 91.4; Estimated Glomerular Filt Rate > 60; Glucose Random 114 mg/dL (60-115); Sodium 140 mmol/L (135-145); Total Protein 6.7 g/dL (6.5-8.0)
[2020-12-04 22:05] VITALS: BP 120/83; PULSE 79; RESP 18; TEMP 35.5; O2SAT 98
== END 2020-12-04 22:35 | disposition home or self-care (01) ==
PROVIDERS: Emergency Provider Emergency Medicine; PCP Internal Medicine Medical Oncology
DX: G40.89 Other seizures (principal); Z91.14 Patient's other noncompliance with medication regimen
CPT/HCPCS: 36415; 80048; 80076; 80307; 81001; 82077; 85025; 93005; 99283

== ENCOUNTER 2020-12-04 23:22 | Emergency (ER) | payer OTHER, SELFPAY ==
--- NOTE | 2020-12-04 23:29 | ED.SEIZURE ---
HPI - Seizure General Chief Complaint: Seizure Stated Complaint: seizure Time Seen by Provider: 12/04/20 23:28 Source: patient and EMS Mode of arrival: EMS Limitations: no limitations History of Present Illness HPI Narrative: Patient was discharged less than an hour ago. When he arrived home, patient had another seizure. Patient careful and call 911. Patient did not want to come to the hospital but eventually he was convinced. At this time, patient states that he wants to leave against medical advice, he does not want any treatment. Patient is alert and oriented, not postictal. After talking to the patient, he agrees to stay for IV treatment, but states that he will not accept to be admitted. Patient denies any injuries. Seizure History: Yes Related Data Home Medications Medication Instructions Recorded Confirmed No Known Home Meds 12/05/20 12/05/20 Allergies Allergy/AdvReac Type Severity Reaction Status Date / Time No Known Allergies Allergy Verified 06/09/20 11:37 Review of Systems Review of Systems: Constitutional : No Weight loss, No Fever, No Chills, No Night Sweats, No Fatigue, No Malaise ENT/Mouth : No Hearing loss, No Ear Pain, No Nasal Congestion, No Sinus Pain, No Hoarseness, No sore throat, No Rhinorrhea, No Swallowing Difficulty Eyes: No Eye Pain, No Swelling, No Redness, No Foreign Body, No Discharge, No Vision Changes Cardiovascular : No Chest Pain, No SOB, No Dyspnea on Exertion, No Orthopnea, No Edema, No Palpitations Respiratory : No Cough, No Sputum, No Wheezing, No Smoke Exposure, No Dyspnea Gastrointestinal : No Nausea, No Vomiting, No Diarrhea, No Constipation, No abdominal Pain, No Hematochezia, No Melena Genitourinary : no irregular bleeding, No Dysuria, No Urinary Frequency, No Hematuria, No Urinary Incontinence, No Urgency, No Flank Pain, No Urinary Flow Changes, No Hesitancy Musculoskeletal : No joint pain, No Myalgias, No Joint Swelling Skin : No Skin Lesions, No rash Neuro : No Weakness, No Numbness, No Paresthesias, 2nd seizure today, no headache Psych : No Anxiety/Panic, No Depression, No SI/HI/AH/VH, No Social Issues, Heme/Lymph: No Bruising, No Bleeding,No Lymphadenopathy Endocrine : No Polyuria, No Polydipsia, No Temperature Intolerance PMF Past Medical History Medical History Seizures Surgical History H/O brain surgery Social History Social History (Updated 06/09/20 @ 11:31 by Freida Rose DO) Alcohol intake: never Advance Directives: No Advance Directives Information Provided: No Physical Exam Vital Signs: Vital Signs: Last Vital Signs Temp 98.9 F 12/05/20 03:29 Pulse 72 12/05/20 03:29 Resp 18 12/05/20 03:29 BP 122/78 12/05/20 03:29 Pulse Ox 96 12/05/20 03:29 Body Mass Index 22.1 Const: Other: Appearance: Alert. Oriented X3. No acute distress. Eyes: Pupils equal, round and reactive to light. ENT: Pharynx normal. Neck: Normal inspection. Neck supple. No lymph nodes noted. No crepitus CVS: Normal heart rate and rhythm. Pulses normal. Normal S1 and S2 Respiratory: No respiratory distress. Breath sounds normal. No Wheezing. No rales Abdomen: Soft and nontender. No rigidity. No distention. good BS x4 Skin: Skin warm and dry. Normal skin color. Normal skin turgor. Extremities: No lower extremity edema.. No Lacerations. No Rash Neuro: Oriented X 3. No motor deficit. No sensory deficit. Moving all extermities. No slurred speech cranial nerves 2-12 grossly intact Course Course Course Narrative: Patient accepts to get 1 dose of IV Keppra. I discussed with the patient that given that he has had multiple seizures today, he should be staying in the hospital, tomorrow he would get Neurology consult in he can establish care as well. Patient declined, states he wants to leave. Patient will be leaving against medical advise Patient received IV Keppra 1500 mg. Patient declined admission. Prescription has been already sent to his pharmacy lasting for 2 months while he finds a new primary care physician and Neurology After patient was being discharged, he said he was sleepy and wanted to stay here sleeping until the morning. It was discussed with the patient that he can not sleep at home. Will be safer there. Patient states that now he wants to be admitted. Discussed the patient with Dr. Adan, patient will be admitted. Reevaluation(s) Reevaluation #1: Patient has been admitted by the hospitalist. I was informed by Dr. Adan that the patient declined to be admission alert he is awake. Patient leaving AMA Time: 05:12 Discharge Plan Discharge Clinical Impression: Generalized seizure Patient Disposition: Left Against Medical Advice
[2020-12-04 23:30] VITALS: BP 136/84; BP 142/65; PULSE 87; PULSE 89; RESP 18; TEMP 36.9; O2SAT 97; BMI 22.1
[2020-12-04] MEDS: levETIRAcetam in NaCl (iso-os) 1,500 MG/100 ML PIGGYBACK 400 MG IV (23:43)
--- NOTE | 2020-12-05 01:59 | PC.NURSE ---
In accordance w/ pt wishes to leave AMA s/p keppra infusion, attempted to bring pt dc papers. Pt also noted to have self-discontinued PIV. Pt states I'm exhausted and I need to stay the night. Educated pt that we are not able to allow discharged pts to sleep w/o medical indication, pt stated is it too late to change my mind? and is now requesting further treatment and inpt admission. MD Boateng made aware
[2020-12-05 03:29] VITALS: BP 122/78; PULSE 72; RESP 18; TEMP 37.2; O2SAT 96
--- NOTE | 2020-12-05 04:46 | P.HPHOSP_ITS ---
History of Present Illness Date of Service: 12/05/20 Chief Complaint: Seizure 35-year-old male with a past medical history of seizure, history of brain surgery; noncompliant with home medications; presented to the hospital with a chief complaint of seizure episode. Patient initially presented earlier in the night with a chief complaint of seizure and was noted to be noncompliant with the Trileptal and subsequently patient was discharged home recommending continuing his home medications. Patient mentioned that have treatment home he had another episode of seizure; similar to the prior episodes tonic-clonic in nature. Denies any loss of consciousness, tongue biting or urinary accident. Was briefly postictal. Subsequently came back to the hospital for further evaluation. Patient denies any headaches blurry visions numbness tingling or focal weakness. Denies any fever chills cough. Denies any GI or symptoms. Denies any chest pain palpitations lightheadedness or dizziness. Review of all other systems is negative except mentioned above ER course: Per ER team patient on presentation noted to have grossly nonfocal examination; labs were essentially benign; patient was given 1 dose of Keppra IV; admitted to the hospital for further management. REPLACED BY [facility] Medical History Seizures Pertinent family history: Reviewed Surgical History H/O brain surgery Social History (Updated 06/09/20 @ 11:31 by Freida Rose DO) Alcohol intake: never Advance Directives: No Advance Directives Information Provided: No Meds Allergies Allergy/AdvReac Type Severity Reaction Status Date / Time No Known Allergies Allergy Verified 06/09/20 11:37 Active Medications: Current Medications Acetaminophen (Acetaminophen 325 Mg Tablet) 650 mg PO Q6H PRN PRN Reason: Pain, Mild (Pain Scale 1-3) Dextrose/Sodium Chloride (D51/2ns) 1,000 mls @ 100 mls/hr IVCONT .Q10H LACI Lorazepam (Lorazepam 2 Mg/Ml Vial) 1 mg IVPUSH Q2H PRN PRN Reason: Seizures Melatonin (Melatonin 3 Mg Tablet) 6 mg PO BEDTIME PRN PRN Reason: Insomnia Senna (Sennosides 8.6 Mg Tablet) 17.2 mg PO BEDTIME PRN PRN Reason: Constipation Sodium Chloride (0.9 % Sodium Chloride Flush 3 Ml Syringe) 3 ml IVFLUSH QSHIFT [facility] Home Medications Medication Instructions Recorded Confirmed Last Taken Type No Known Home Meds 12/05/20 12/05/20 Unknown History Physical Exam Vital Signs and Narrative: Vital Signs: Last Vital Signs Temp 98.9 F 12/05/20 03:29 Pulse 72 12/05/20 03:29 Resp 18 12/05/20 03:29 BP 122/78 12/05/20 03:29 Pulse Ox 96 12/05/20 03:29 Body Mass Index 22.1 Gen: Appears be in no acute distress HEENT: NCAT, Moist mucosa. Pulmonary: Vesicular breath sounds, fair air entry CVS: Normal S1-S2 Abdomen: BS+, Soft, Nontender Extremities: Warm well perfused Neuro: Alert and awake. Grossly nonfocal Assessment and Plan (1) Generalized seizure: Status: Acute 35-year-old male with a past medical history of seizure, history of brain surgery; noncompliant with home medications; presented to the hospital with a chief complaint of seizure episode. Seizures: Patient had 2 episodes of seizures in the past 1 day. Patient was supposed to be on Trileptal 150 mg b.i.d. at home-non complaint. Resume Trileptal. Will obtain CT head Exam nonfocal Seizure precautions Ativan p.r.n. for seizure Neurology consult for further recommendations DVT prophylaxis: SCD boots Code status: Full code Quality Stroke Does the patient have a stroke diagnosis?: No VTE Prior VTE?: No VTE Risk Level:: Medical - low VTE Device Contraindication: N/A - Device Ordered VTE Drug Contraindication: Treatment Not Indicated
--- NOTE | 2020-12-05 05:11 | PC.NURSE ---
hospitalist seen pt. order for ivf, upon trying to start the ivf, found with no iv, and pt refuses to stay to be admitted due to he has to go to work at 1500 today and pt wants to go home to sleep. hospitalist made aware.
--- NOTE | 2020-12-05 05:11 | PM.EVENT ---
Event Note Date of Service: 12/05/20 Event Note: ER physician wanted to admit the patient for seizures. I went to talk to the patient. Patient was very clear that he does not want to be admitted. Per discussions he wants to leave against medical advice. ER physician speaking to the patient's in regards.
== END 2020-12-05 05:30 | disposition left against medical advice (07) ==
LOC: HO.ED 12-05 02:01 → HO.IMC 12-05 05:12 → HO.ED 12-05 05:34
PROVIDERS: Emergency Provider Emergency Medicine; PCP Internal Medicine Medical Oncology
DX: G40.89 Other seizures (principal)
CPT/HCPCS: 96374; 99283; 99284; J1953

== ENCOUNTER 2021-04-08 07:11 | Emergency (ER) | payer OTHER, SELFPAY ==
[2021-04-08 07:18] VITALS: BP 131/86; PULSE 77; RESP 20; TEMP 36.6; O2SAT 97; BMI 21.4
--- NOTE | 2021-04-08 07:30 | PC.NURSE ---
Pt reports he takes Trileptal twice a day 150 mg. States he is med compliant.
[2021-04-08 07:31] VITALS: PULSE 84
--- NOTE | 2021-04-08 07:34 | PC.NURSE ---
Provider in to bedside for primary eval
--- NOTE | 2021-04-08 07:42 | ED.SEIZURE ---
HPI - Seizure General Chief Complaint: Seizure Stated Complaint: SEIZURE,POST ICTAL Time Seen by Provider: 04/08/21 07:32 Source: patient Mode of arrival: EMS Limitations: no limitations History of Present Illness HPI Narrative: 35-year-old male who is brought to the emergency department for evaluation of his seizure. The patient has no memory of the seizure but apparently was witnessed by his family. The patient states that when he was 16 years old he had a brace surgery for an AVM. After that he did have seizures a states that he was on anti seizure medicines for many years and then stopped them and had no seizures. He states that over the last 2-3 years his seizures have started up again and he has been taking Trileptal (oxcarbazepine) 150 mg twice a day. He states he has been compliant with this medication. He states that he has had approximately 2-3 seizures per year since restarting the medication. He gets the medication from his PCP and has not seen a neurologist. He states that in the past he had been on Trileptal 600 mg twice a day. He currently has no complaints and just wants to go home. He does not want any blood work or any other studies. He denied fever, chills, rhinorrhea, sore throat, cough, chest pain, shortness of breath, nausea, vomiting, diarrhea, headache, numbness or weakness. complaint: seizure Onset (ago): minute(s) (Just prior to arrival) Description of Episode: loss of consciousness and tonic-clonic movement Duration of episode: 3 -: minutes(s) Witnessed: Yes - by Bystander Trauma: No Seizure History: Yes Place: Home (While the patient was sleeping in bed) Possible Precipitating Event: none Associated symptoms: denies other symptoms Treatments prior to arrival: none Related Data Previous Rx's Medication Instructions Recorded nicotine (polacrilex) 4 mg gum 4 mg BUCCAL Q2-4H PRN #50 ea 03/08/21 oxcarbazepine 150 mg tablet 150 mg PO BID 90 Days #180 tab 03/08/21 (Trileptal) oxcarbazepine 300 mg tablet 300 mg PO BID #60 tab 04/08/21 (Trileptal) Allergies Allergy/AdvReac Type Severity Reaction Status Date / Time No Known Allergies Allergy Verified 03/08/21 08:50 Review of Systems Review of Systems: Yes all other systems are reviewed and are negative COUNT INCLUDES THE [facility] Past Medical History Medical History Seizures Surgical History H/O brain surgery Family History Family History Maternal Grandfather Brain aneurysm, Onset Age: 40 Paternal Uncle Down syndrome Social History Social History Alcohol intake: unknown Patient Tobacco Use Status: Current everyday Tobacco user Cigarettes Per Day: 20 Years Smoked: 7 Use of substances other than those prescribed or required for medical reasons: No Physical Exam Vital Signs: Vital Signs: Last Vital Signs Temp 97.9 F 04/08/21 07:18 Pulse 84 04/08/21 07:31 Resp 20 04/08/21 07:18 BP 131/86 04/08/21 07:18 Pulse Ox 97 04/08/21 07:18 BMI result Body Mass Index 21.4 Const: General: cooperative and no acute distress Orientation/consciousness: oriented to person and oriented to place Limitations: no limitations HENMT: Head: Yes normal to inspection, Yes normocephalic and Yes atraumatic Ears: external ears normal General nose exam: Normal external nose present Face and sinus: Yes normal facial exam Mouth: Normal oral and palatal mucosa present Throat: Yes posterior oropharynx normal Eyes: General: appearance normal, both eyes and all related structures Pupils: Equal, round and reactive pupils present Neck: Neck: Yes normal visual inspection, Yes no lymphadenopathy, Yes trachea midline and Yes supple Chest: Chest palpation & inspection: normal inspection of the chest and normal palpation of entire chest wall Resp: Effort & Inspection: normal respiratory effort and able to speak in complete sentences Auscultation: clear to auscultation bilaterally Cardio: Rate: regular rate Rhythm: regular rhythm Heart sounds: S1 normal heart sound present, S2 normal heart sound present and no murmurs GI: Inspection: Yes normal to inspection Palpation (GI): Soft to palpation, nontender and no guarding Auscultation: normal bowel sounds : General: Yes no CVA tenderness Back/Spine/Pelvis: Back: no CVA tenderness Skin: General skin exam: no rashes or lesions noted Neuro: General: oriented to person and oriented to place Cranial nerves: Yes CN's II-XII intact bilaterally and Yes Equal, round and reactive pupils present Cognition (Neuro): normal cognition Motor exam (neuro): 5/5 motor strength present throughout Extrem: General: Yes normal to inspection Psych: Appearance: grossly normal Speech and movement: Normal speech and movement present Affect: normal affect Attitude: cooperative Thought process: Normal thought process present Thought content: Normal thought content present Course Course Course Narrative: 35-year-old male with a known seizure disorder presents emergency department for evaluation of a seizure while he was sleeping in bed. The patient has been taking Trileptal (oxcarbazipine) 150 mg twice a day and he states that in the past he has been on a doses via 600 mg twice a day. The patient has been compliant with this medication. He states that he has had 2-3 breakthrough seizures per year on this dose. The patient's vital signs were normal. Patient's physical examination was unremarkable. The patient does not want any further studies at this time. He was given Trileptal 300 mg orally and Ativan 1 mg IV to try to prevent another seizure. The patient's dose of Trileptal will be increased to 300 mg twice a day. Patient will need to follow-up with his PCP and he is waiting for follow-up with a neurologist. He was given verbal and printed instructions and discharged home. Discharge Plan Discharge Clinical Impression: Seizures Patient Disposition: Home, Self-Care Instructions: Recurrent Seizures in Adults (ED) Additional Instructions: I am increasing your Trileptal (oxcarbazepine) from 150 mg twice a day to 300 mg twice a day to try to prevent you from having further seizures. You should not drive until you are cleared by a neurologist. Also should avoid getting into situations in which a seizure can cause you to injure yourself or others. I did give you Trileptal (oxcarbazepine) 300 mg orally in the emergency department. Your also treated with Ativan 1 mg IV. Hopefully these medications will help prevent a recurrent seizure in the next 24-48 hours. Follow-up with your doctor in 2 days. Please return to the emergency department if your symptoms get worse or if you develop any symptoms that are concerning to you. Prescriptions: New oxcarbazepine [Trileptal] 300 mg tablet 300 mg PO BID Qty: 60 0RF No Action oxcarbazepine [Trileptal] 150 mg tablet 150 mg PO BID 90 Days Qty: 180 0RF nicotine (polacrilex) 4 mg gum 4 mg buccal Q2-4H PRN (Reason: nicotine cravings) Qty: 50 0RF
[2021-04-08] MEDS: OXcarbazepine 300 MG TABLET PO (07:49)
[2021-04-08] MEDS: LORazepam 2 MG/ML VIAL 1 MG IVPUSH (07:49)
[2021-04-08 07:53] VITALS: BP 124/77; PULSE 80; RESP 18
--- NOTE | 2021-04-08 07:57 | PC.NURSE ---
Pt medicated wtih trileptal and ativan as charted. Pt provided with phone to call his mother.
--- NOTE | 2021-04-08 08:19 | PC.NURSE ---
Plan for pt's aunt to come pick him up.
== END 2021-04-08 08:56 | disposition home or self-care (01) ==
PROVIDERS: Emergency Provider Emergency Medicine Emergency Medical Services; PCP Internal Medicine
DX: R56.9 Unspecified convulsions (principal); Z79.899 Other long term (current) drug therapy
CPT/HCPCS: 96374; 99284; J2060

== ENCOUNTER 2021-08-24 12:00 | Outpatient (RCR) | payer OTHER, SELFPAY | END 2021-09-13 12:58 | disposition home or self-care (01) | LOC: HO.PT 12:00 | PROVIDERS: PCP Nurse Practitioner Family; Visit Provider Nurse Practitioner Family | DX: M25.511 Pain in right shoulder (principal) | CPT/HCPCS: 97110; 97161; 97530 ==